=== PATIENT | male | born 1955 | race Caucasian/White ===

== ENCOUNTER → 2017-05-08 | Outpatient (CLI) | payer OTHER ==
--- NOTE | 2017-05-08 10:04 | DIAGNOSTIC IMAGING REPORT ---
PROCEDURE: US RENAL VASCULAR - BILATERAL INDICATION: HYPERTENION TECHNIQUE: Jarrett scale and color Doppler sonographic images of the kidneys were performed. Spectral waveform analysis was obtained of the renal arteries, intrarenal vessels, and aorta, including renal resistive indices and calculation of renal to aortic ratios. COMPARISON: CT abdomen/pelvis 09/30/2008. FINDINGS: AORTIC VELOCITY: 49 cm/sec. RIGHT KIDNEY: Right kidney is of normal size 12.6 x 5.9 x 6.6 cm) with lobulated contour. 2.3 cm lower pole simple cyst. RIGHT RENAL ARTERY VELOCITIES: Right renal artery velocities are normal (proximal 69 cm/s; mid 77 cm/s; distal 58 cm/s). RIGHT RENAL AORTIC RATIO: Right renal to aortic ratios are normal (proximal 1.4 mid 1.6 distal 1.2 RIGHT RENAL RESISTIVE INDICES: Right renal resistive indices are normal (upper pole 0.7 midpole 0.72 inferior pole 0.77 LEFT KIDNEY: Left kidney is of normal size 11.4 x 7.7 x 5.7 cm) with lobulation. LEFT RENAL ARTERY VELOCITIES: Left renal artery velocities are normal (proximal not visualized cm/s; mid 64 cm/s; distal 38 cm/s). LEFT RENAL AORTIC RATIO: Left renal to aortic ratios are normal (proximal not applicable, mid 1.3 distal 0.8 LEFT RENAL RESISTIVE INDICES: Left renal resistive indices are normal (upper pole 0.7; mid pole 0.69, inferior pole 0.73 IMPRESSION: 1. Lobulation of both kidneys suggestive of lobulation 2. Right renal lower pole simple cyst 3. No evidence of renal artery stenosis 4. Resistive indices within normal limits
== END ==
LOC: US SRH 07:33
DX: I10 Essential (primary) hypertension (principal)